=== PATIENT | male | born 1995 | race Caucasian/White ===

== ENCOUNTER 2017-06-27 12:06 | Outpatient (RCR) | payer OTHER ==
[2017-06-27] MEDS ORDERED: MELO15TA4 (19:04)
[2017-06-27] MEDS ORDERED: CYCL10TA PO (22:24)
[2017-06-27] MEDS ORDERED: NORCOTAB PO (22:24)
[2017-07-01] MEDS ORDERED: PRED20TA PO (09:14)
[2017-07-01] MEDS ORDERED: NORCOTAB PO (09:14)
== END 2017-07-06 ==
LOC: M PT 12:06
PROVIDERS: ATTEND Physician Assistant Medical
DX: Z51.89 Encounter for other specified aftercare (principal); M54.5 Low back pain

== ENCOUNTER 2017-06-27 18:52 | Emergency (ER) | payer OTHER ==
[~2017-06-27] VITALS: Ht 182.9 cm; Wt 79.5 kg
[2017-06-27] MEDS ORDERED: MELO15TA4 (19:04)
[2017-06-27] MEDS ORDERED: CYCL10TA PO (22:24)
[2017-06-27] MEDS ORDERED: NORCOTAB PO (22:24)
[2017-06-27] MEDS ORDERED: NORCO 5/325MG TABLET (BULK FOR ED) PO ONE (22:30)
[2017-06-27 22:36] VITALS: BP 129/83
== END 2017-06-27 22:38 | disposition home or self-care (01) ==
LOC: M ED 18:52
DX: M54.5 Low back pain (principal)

== ENCOUNTER 2017-07-01 07:24 | Emergency (ER) | payer OTHER ==
[~2017-07-01] VITALS: Ht 182.9 cm; Wt 79.5 kg
[~2017-07-01 07:24] MED LIST: CYCL10TA PO; MELO15TA4; NORCOTAB PO
[2017-07-01] MEDS ORDERED: NORCOTAB PO (09:14)
[2017-07-01] MEDS ORDERED: PRED20TA PO (09:14)
[2017-07-01] MEDS ORDERED: methylPREDNISolone INJ 125 MG/2 ML VIAL (J2930) IM ONE (09:15)
[2017-07-01 09:35] VITALS: BP 150/88
== END 2017-07-01 09:56 | disposition home or self-care (01) ==
LOC: M ED 07:24
DX: G89.29 Other chronic pain (principal); M54.5 Low back pain; Z79.899 Other long term (current) drug therapy; Z88.0 Allergy status to penicillin; F17.210 Nicotine dependence, cigarettes, uncomplicated
CPT/HCPCS: 96372; 99282; J2930

== ENCOUNTER 2017-07-10 08:23 | Emergency (ER) | payer OTHER ==
[~2017-07-10] VITALS: Ht 182.9 cm; Wt 86.4 kg
[~2017-07-10 08:23] MED LIST changes: +PRED20TA PO
[2017-07-10 08:54] VITALS: BP 125/79
[2017-07-10] MEDS ORDERED: MOBI4TAB PO (09:38)
[2017-07-10] MEDS ORDERED: CYCL10TA PO (09:38)
[2017-07-10] MEDS ORDERED: NORCOTAB PO (09:39)
== END 2017-07-10 09:51 | disposition home or self-care (01) ==
LOC: M ED 08:23
DX: M54.5 Low back pain (principal); G89.29 Other chronic pain

== ENCOUNTER 2017-10-11 03:28 | Emergency (ER) | payer OTHER | END 2017-10-11 07:13 | disposition left against medical advice (07) | LOC: M ED 03:28 | DX: Z53.21 Procedure and treatment not carried out due to patient leaving prior to being seen by health care provider (principal) ==